=== PATIENT | female | born 1985 | race Caucasian/White ===

== ENCOUNTER 2019-08-28 04:50 | Emergency (ER) | payer OTHER ==
[~2019-08-28] VITALS: Ht 165.1 cm; Wt 52.2 kg
[2019-08-28] MEDS ORDERED: ZOLOFT100 MG PO ×2 (05:01→05:02)
[2019-08-28 05:15] LABS: ABSOLUTE LYMPHOCYTES 3.8 thou/uL (0.8-5.3); ABSOLUTE MONOCYTES 0.4 thou/uL (0.0-1.2); ABSOLUTE NEUTROPHILS 5.9 thou/uL (1.6-8.1); BASOPHILS 0.4 %; EOSINOPHILS 0.2 %; HEMATOCRIT 40.5 % (37.0-47.0); HEMOGLOBIN 13.7 gm/dL (12.0-15.0); LYMPHOCYTES 37.4 %; MCH 32.1 pg (26.0-34.0); MCHC 33.9 g/dL (28.0-37.0); MCV 94.8 fL (80.0-100.0); MONOCYTES 3.6 %; MPV 8.1 fl. (7.2-11.1); NUCLEATED RBCS 0 /100WBC; PLATELET COUNT* 285 thou/uL (150-400); POLYS 58.4 %; RBC 4.27 mil/uL (4.20-5.00); RDW-CV 12.1 % (10.5-14.5); WBC 10.2 thou/uL (4.0-11.0)
[2019-08-28 05:22] LABS: CREATININE 1.1 mg/dL (0.6-1.3)
[2019-08-28 05:28] LABS: POTASSIUM 2.3 mmol/L (3.5-5.1)
[2019-08-28 05:36] LABS: URINE BILIRUBIN NEGATIVE (Negative); URINE BLOOD TRACE (Negative); URINE CLARITY CLEAR; URINE COLOR YELLOW; URINE GLUCOSE-RANDOM 2+ (Negative); URINE KETONES NEGATIVE (Negative); URINE LEUKOCYTES-REFLEX NEGATIVE (Negative); URINE NITRITE-REFLEX NEGATIVE (Negative); URINE PROTEIN NEGATIVE (Negative); URINE SPECIFIC GRAVITY >= 1.030 (1.005-1.030); URINE UROBILINOGEN 0.2 E.U./dl (0.2-1.0)
[2019-08-28 05:43] LABS: AMP/METHAMP Negative (Negative); BARBITURATES Negative (Negative); BENZODIAZEPINES Negative (Negative); COCAINE Negative (Negative); METHADONE Negative (Negative); OPIATES Negative (Negative); PCP Negative (Negative); THC POSITIVE (Negative)
[2019-08-28 05:50] LABS: SALICYLATE < 2.8 mg/dL (2.8-20.0)
[2019-08-28 05:51] LABS: ACETAMINOPHEN < 2 ug/mL (10-30); ALCOHOL < 10 mg/dL (<10)
[2019-08-28 08:30] LABS: BE -5.1 mmol/L (-2 to +3); PCO2 VENOUS 42.3 mmHg (41.0-51.0); PO2 VENOUS 82.3 mmHg (35.0-45.0)
[2019-08-28 08:40] LABS: CREATININE 0.7 mg/dL (0.6-1.3)
[2019-08-28 08:41] LABS: POTASSIUM 3.7 mmol/L (3.5-5.1)
[2019-08-28 08:55] VITALS: BP 114/53
[2019-08-29 02:07] LABS: GLYCOHEMOGLOBIN (HGB A1C) 4.9 % (4.8-5.6)
== END 2019-08-28 08:56 | disposition home or self-care (01) ==
LOC: M.ERS 04:50
PROVIDERS: Emergency Medicine; Family Medicine
DX: E87.6 Hypokalemia (principal); T43.225A Adverse effect of selective serotonin reuptake inhibitors, initial encounter; F19.10 Other psychoactive substance abuse, uncomplicated; R41.82 Altered mental status, unspecified; F32.9 Major depressive disorder, single episode, unspecified; Y92.89 Other specified places as the place of occurrence of the external cause